=== PATIENT | male | born 1995 | race American Indian/Alaskan Native ===

== ENCOUNTER 2017-12-07 07:06 | Emergency (ER) | payer SELFPAY ==
[2017-12-07] MEDS ORDERED: ZOFRAN ODT ONE (07:31)
[2017-12-07] MEDS ORDERED: ZOFRAN ODT PO ONE (07:34)
[2017-12-07] MEDS ORDERED: NACL 0.9% 1000 ML 1,000 ML IV ONE ×2 (07:38→09:34)
[2017-12-07 08:13] LABS: Basophils % (Auto) 0.5 % (0.0-1.8); Eosinophils # (Auto) 0.1 K/mm3 (0.0-0.4); Eosinophils % (Auto) 0.6 % (0.0-4.3); Hematocrit 43.1 % (35.5-45.6); Hemoglobin 13.8 gm/dl (11.8-15.2); Lymphocytes # (Auto) 1.4 K/mm3 (1.2-5.4); Lymphocytes % (Auto) 16.1 % (13.4-35.0); Mean Corpuscular HGB Conc 32 % (32-34); Mean Corpuscular Volume 75 fl (84-94); Monocytes # (Auto) 0.6 K/mm3 (0.0-0.8); Monocytes % (Auto) 7.4 % (0.0-7.3); Platelet Count 294 K/mm3 (140-440); Red Blood Count 5.78 M/mm3 (3.65-5.03); Red Cell Distribution Width 15.6 % (13.2-15.2)
[2017-12-07 08:18] LABS: Mean Corpuscular Hemoglobin 24 pg (28-32)
[2017-12-07 08:27] LABS: Bilirubin,Urine NEG (Negative); Blood,Urine NEG (Negative); Color,Urine Yellow (Yellow); Mucus,Urine 3+ /HPF
[2017-12-07 08:28] LABS: Alanine Aminotransferase 19 units/L (7-56); BUN/Creatinine Ratio 9; Blood Urea Nitrogen 8 mg/dL (9-20); Calcium 9.3 mg/dL (8.4-10.2); Hemolysis Index 35
[2017-12-07] MEDS ORDERED: PEPCID IV ONE (09:34)
[2017-12-07] MEDS ORDERED: TORADOL IV ONE (09:34)
[2017-12-07] MEDS ORDERED: ZOFRAN IV ONE (09:34)
--- NOTE | 2017-12-07 09:36 | Emergency Department Report ---
Blank Doc - Documentation Documentation: Patient is a 22-year-old male with no significant past history presented with one day of nausea vomiting and central abdominal pain. Patient states crampy in nature 8 out of 10 in severity. The patient states there is no diarrhea or fever present. Brief physical exam patient does appear very uncomfortable is very nauseous actively vomiting. Emergency department. Patient has some just diffuse abdominal discomfort no rebound or guarding at this time. Patient be moved to a treatment room for IV fluids and nausea control as well as a CT of his abdomen and pelvis to rule out surgical cause of the patient's pain.
--- NOTE | 2017-12-07 10:46 | Cat Scan Report ---
CT ABDOMEN PELVIS WITH CONTRAST: HISTORY: Nausea and vomiting, abdominal pain. COMPARISON: none. TECHNIQUE: Helical CT in 1.25mm intervals following IV contrast. Sagittal and coronal reconstructions. FINDINGS: Lung bases: Normal. Liver: Normal. Biliary system: Normal. Pancreas: Normal. Spleen: Normal. Kidneys/ureters/bladder: Normal. Adrenal glands: Normal. Aorta: Normal. Intestines: Normal. Appendix: Normal. Pelvic viscera: Normal. Ascites: None. Adenopathy: None. Musculoskeletal: Normal. IMPRESSION: Unremarkable CT scan of the abdomen and pelvis with contrast.
[2017-12-07] MEDS ORDERED: BENTYL IM ONE (11:05)
[2017-12-07] MEDS ORDERED: NORCO 5/325 PO ONE (11:05)
[2017-12-07] MEDS ORDERED: REGLAN IV ONE (11:07)
--- NOTE | 2017-12-07 11:33 | Emergency Department Report ---
ED Abdominal Pain HPI - General Chief Complaint: Abdominal Pain Stated Complaint: VOMITING Time Seen by Provider: 12/07/17 09:31 Source: patient Mode of arrival: Ambulatory Limitations: No Limitations - History of Present Illness Initial Comments: This is a 22-year-old male nontoxic, well nourished in appearance, no acute signs of distress presents to the ED with c/o of nausea and vomiting and abdominal pain1 day. Patient describes vomiting as food content and yellow gastric acid. Patient describes abdominal pain as cramping and aching with level of 3/10 in the epigastric region. Patient denies chest pain, short of breath, fever, chills, headache, stiff neck, numbness or tingling. Patient denies any diarrhea or constipation. Patient denies any vaginal bleeding or discharge. Patient denies any recent travels. Patient denies any allergies with PMH of asthma. MD Complaint: abdominal pain -: days(s) (1) Location: epigastric Radiation: none Migration to: no migration Severity: mild Severity scale (0 -10): 3 Quality: cramping, aching Consistency: constant Improves With: nothing Worsens With: nothing Associated Symptoms: nausea, vomiting. denies: diarrhea, fever, chills, constipation, dysuria, hematemesis, hematochezia, melena, hematuria, anorexia, syncope - Related Data Allergies Allergy/AdvReac Type Severity Reaction Status Date / Time No Known Allergies Allergy Unverified 12/07/17 07:32 ED Review of Systems ROS: Stated complaint: VOMITING Other details as noted in HPI Constitutional: denies: chills, fever Eyes: denies: eye pain, eye discharge, vision change ENT: denies: ear pain, throat pain Respiratory: denies: cough, shortness of breath, wheezing Cardiovascular: denies: chest pain, palpitations Endocrine: no symptoms reported Gastrointestinal: abdominal pain, nausea, vomiting. denies: diarrhea, constipation, hematemesis Genitourinary: denies: urgency, dysuria Musculoskeletal: denies: back pain, joint swelling, arthralgia Skin: denies: rash, lesions Neurological: denies: headache, weakness, paresthesias Psychiatric: denies: anxiety, depression Hematological/Lymphatic: denies: easy bleeding, easy bruising ED Past Medical Hx - Past Medical History Previous Medical History?: Yes Hx Asthma: Yes - Surgical History Past Surgical History?: No - Social History Smoking Status: Never Smoker Substance Use Type: None ED Physical Exam - General Limitations: No Limitations General appearance: alert, in no apparent distress - Head Head exam: Present: atraumatic, normocephalic - Eye Eye exam: Present: normal appearance Pupils: Present: normal accommodation - ENT ENT exam: Present: normal exam, mucous membranes moist - Neck Neck exam: Present: normal inspection, full ROM. Absent: tenderness, meningismus, lymphadenopathy - Respiratory Respiratory exam: Present: normal lung sounds bilaterally. Absent: respiratory distress, wheezes, rales, rhonchi, stridor, chest wall tenderness, accessory muscle use, decreased breath sounds, prolonged expiratory - Cardiovascular Cardiovascular Exam: Present: regular rate, normal rhythm, normal heart sounds. Absent: irregular rhythm, systolic murmur, diastolic murmur, rubs, gallop - GI/Abdominal GI/Abdominal exam: Present: soft, tenderness (epigastric ), normal bowel sounds. Absent: distended, guarding, rebound, rigid, diminished bowel sounds, hyperactive bowel sounds, hypoactive bowel sounds, mass, pulsatile mass, hernia - Expanded GI/Abdominal Exam Expanded GI/Abdominal exam: Absent: psoas sign, obturator sign, heel tap sign, Forbes's sign, Rovsing's sign, tenderness at Mcburney's Point, ascites - Rectal Rectal exam: Present: deferred - Extremities Exam Extremities exam: Present: normal inspection, full ROM, normal capillary refill. Absent: tenderness - Back Exam Back exam: Present: normal inspection, full ROM - Neurological Exam Neurological exam: Present: alert, oriented X3, normal gait - Psychiatric Psychiatric exam: Present: normal affect, normal mood - Skin Skin exam: Present: warm, dry, intact, normal color. Absent: rash ED Course Vital Signs 12/07/1718 07:30 09:31 Temperature 97.4 F L Pulse Rate 46 L Respiratory 16 19 Rate Blood Pressure 128/92 O2 Sat by Pulse 100 Oximetry - Reevaluation(s) Reevaluation #1: 12/07/17 11:29 Patient is speaking in full sentences with no signs of distress noted. - Consultations Consultation #1: 12/07/17 11:29 Patient has been consulted with Frank Roldan about patient history, physical exam, and labs and examined and screened patient and agrees to ED plan of care and with admission. ED Medical Decision Making - Lab Data Result diagrams: 12/07/17 07:58 12/07/17 07:58 - Medical Decision Making This is a 22-year-old female that presents with abdominal pain and intractable nausea vomiting. Patient is stable and was examined by me and Frank Roldan. Negative signs of symptoms of appendicitis. Labs obtained. UA obtained. CT with contrast of abdomen obtained and dictated by the radiologist. Patient is notified of the report with no questions noted by the patient. Vital signs are stable prior to discharge. Patient received 10 of Reglan with 8 of Zofran IV with no relief. Patient has continues nausea with vomiting. Patient will be admitted for intractable nausea with vomiting. Patient was admitted with Dr. Mendez, (hospitalist). At time of admission, the patient does not seem toxic or ill in appearance. No acute signs of distress noted. Patient agrees to admission treatment plan of care. No further questions noted by the patient. Critical care attestation.: If time is entered above; I have spent that time in minutes in the direct care of this critically ill patient, excluding procedure time. ED Disposition Clinical Impression: Intractable nausea and vomiting Qualifiers: Vomiting type: unspecified Qualified Code(s): R11.2 - Nausea with vomiting, unspecified Abdominal pain Qualifiers: Abdominal location: epigastric Qualified Code(s): R10.13 - Epigastric pain Disposition: OP ADMIT IP TO THIS HOSP Is pt being admited?: Yes Condition: Stable Referrals: PRIMARY CARE, [Primary Care Provider] - 3-5 Days
--- NOTE | 2017-12-07 12:54 | History and Physical Report ---
History of Present Illness Chief complaint: My stomach hurts History of present illness: 22 YO Male with no PMH presents to ED for evaluation of Abdominal Pain. Pt seen and evaluated in ED and found to have UTI as well as nausea and vomiting. Pt treated with anti emetic therapy with improvement in symptoms. Pt medically optimized and back to usual state of health. Pt discharged home and instructed to f/u pcp 1wk for further care. Past History Past Medical History: No medical history, other (reviewed) Past Surgical History: No surgical history, Other (reviewed) Social history: single, lives with family Family history: no significant family history (reviewed) Medications and Allergies Allergies Allergy/AdvReac Type Severity Reaction Status Date / Time No Known Allergies Allergy Unverified 12/07/17 07:32 Home Medications Medication Instructions Recorded Confirmed Last Taken Type Ciprofloxacin HCl [Ciprofloxacin 500 mg PO Q12H #14 tab 12/07/17 Unknown Rx TAB] Ondansetron [Zofran Odt] 4 mg PO Q8HR #10 tab.rapdis 12/07/17 Unknown Rx Review of Systems Constitutional: no weight loss, no weight gain, no fever, no chills Ears, nose, mouth and throat: no ear pain, no ear discharge, no tinnitis, no decreased hearing, no nose pain Cardiovascular: no chest pain, no orthopnea, no palpitations Respiratory: no cough, no cough with sputum, no excessive sputum Gastrointestinal: abdominal pain, no change in bowel habits, no BRBPR, no melena , no hematochezia, no loss of appetite, no early satiety Genitourinary Male: no hematuria, no flank pain, no discharge, no urinary frequency, no urinary hesitancy Rectal: no pain, no incontinence, no bleeding Musculoskeletal: no neck stiffness, no neck pain, no shooting arm pain, no arm numbness/tingling, no low back pain, no shooting leg pain Integumentary: no rash, no pruritis, no redness, no sores, no wounds Neurological: no transient paralysis, no paralysis, no weakness, no parathesias , no numbness, no tingling Psychiatric: no anxiety, no memory loss, no change in sleep habits, no insomnia , no hypersomnia, no change in appetite, no change in libido Endocrine: no cold intolerance, no heat intolerance, no polyphagia, no excessive thirst, no polydipsia Hematologic/Lymphatic: no easy bruising, no easy bleeding, no lymphadenopathy, no lymphedema Allergic/Immunologic: no urticaria, no allergic rhinitis, no wheezing, no persistent infections, no anaphylaxis, no angioedema, no gluten intolerance, no seasonal allergies Exam - Constitutional Vitals: Temp Pulse Resp BP Pulse Ox 98.5 F 45 L 18 148/90 100 12/07/17 12:33 12/07/17 12:33 12/07/17 12:33 12/07/17 12:33 12/07/17 12:33 General appearance: Present: no acute distress, well-nourished - EENT Eyes: Present: PERRL ENT: hearing intact, clear oral mucosa - Neck Neck: Present: supple, normal ROM - Respiratory Respiratory effort: normal Respiratory: bilateral: CTA - Cardiovascular Heart Sounds: Present: S1 & S2. Absent: rub, click - Extremities Extremities: pulses symmetrical, No edema Peripheral Pulses: within normal limits - Abdominal General gastrointestinal: Present: soft, non-tender, non-distended, normal bowel sounds Male genitourinary: Present: normal - Integumentary Integumentary: Present: clear, warm, dry - Musculoskeletal Musculoskeletal: gait normal, strength equal bilaterally - Psychiatric Psychiatric: appropriate mood/affect, intact judgment & insight - Neurologic Neurologic: CNII-XII intact, moves all extremities Results - Labs CBC & Chem 7: 12/07/17 07:58 12/07/17 07:58 Labs: Abnormal lab results 12/07/17 12/07/17 12/07/17 Range/Units 07:58 07:58 08:00 RBC 5.78 H (3.65-5.03) M/mm3 MCV 75 L (84-94) fl MCH 24 L (28-32) pg RDW 15.6 H (13.2-15.2) % Cocke % (Auto) 7.4 H (0.0-7.3) % Seg Neutrophils % 75.4 H (40.0-70.0) % Carbon Dioxide 21 L (22-30) mmol/L BUN 8 L (9-20) mg/dL Glucose 161 H (75-100) mg/dL Urine pH 8.0 H (5.0-7.0) Urine WBC (Auto) 22.0 H (0.0-6.0) /HPF Assessment and Plan - Patient Problems (1) UTI (urinary tract infection) Status: Acute Qualifiers: Encounter type: initial encounter Plan to address problem: IV antibiotic therapy, f/U pcp 1wk, (2) Abdominal pain Status: Acute Qualifiers: Abdominal location: epigastric Qualified Code(s): R10.13 - Epigastric pain Plan to address problem: CT Abdomen/Pelvis unremarkable, anti emetic therapy.
[2017-12-07 13:55] LABS: Amphetamine Screen,Urine PRESUMPTIVE NEGATIVE; Benzodiazepines Screen,Urine PRESUMPTIVE NEGATIVE; Cocaine Screen,Urine PRESUMPTIVE NEGATIVE; Methadone Screen,Urine PRESUMPTIVE NEGATIVE; Opiate Screen,Urine PRESUMPTIVE NEGATIVE
[2017-12-07 14:08] LABS: Cannabinoid Screen,Urine PRESUMPTIVE POSITIVE
[2017-12-07] MEDS ORDERED: ROCEPHIN/NS 1 GM/50 ML 1 GM/50 ML BAG IV ONE (14:30)
[2017-12-07 18:08] VITALS: BP 112/51
--- NOTE | 2017-12-07 18:23 | Cat Scan Report ---
FINAL REPORT EXAM: CT HEAD/BRAIN WO CON HISTORY: headache/confusion TECHNIQUE: CT was performed from the foramen magnum through the vertex in the axial plane without the use of intravenous contrast. PRIORS: 12/13/2015 FINDINGS: The goncalves/white matter attenuation pattern is normal. There is no mass lesion or mass effect. There are no abnormal extra-axial fluid collections. There is no evidence of acute intracranial hemorrhage or infarct. The ventricles are of normal size and configuration. The skull and orbits are unremarkable. The visualized paranasal sinuses are clear. IMPRESSION: Normal CT of the head.
[2017-12-07] MEDS ORDERED: ROCEPHIN/NS 1 GM/50 ML 1 GM/50 ML BAG IV SCH (22:00)
== END 2017-12-07 19:17 | disposition admitted as inpatient to this hospital (09) ==
LOC: ED 07:06
DX: R10.13 Epigastric pain (principal); R11.2 Nausea with vomiting, unspecified; J45.909 Unspecified asthma, uncomplicated; R51 Headache
CPT/HCPCS: 36415; 70450; 74177; 80053; 80307; 81001; 85025; 87806; 96361; 96365; 96372; 96375; 99284; J0500; J0696; J1885; J2405; J2765; J7030; Q9967; Q0162

== ENCOUNTER 2019-08-05 08:59 | Emergency (ER) | payer OTHER ==
[2019-08-05] MEDS ORDERED: ONDANSETRON 4 MG/2 ML INJ ONE (09:13)
[2019-08-05] MEDS ORDERED: SODIUM CHLORIDE 0.9% 1000 ML 1,000 ML IV ONE ×2 (09:24→10:36)
[2019-08-05] MEDS ORDERED: MORPHINE 4 MG/1 ML INJ IV ONE (09:24)
[2019-08-05] MEDS ORDERED: METOCLOPRAMIDE 10 MG/2 ML INJ IV ONE (09:36)
--- NOTE | 2019-08-05 10:03 | Emergency Department Report ---
ED General Adult HPI - General Chief complaint: Abdominal Pain Stated complaint: VOMIT/ABD PAIN Time Seen by Provider: 08/05/19 09:17 Source: patient Mode of arrival: Ambulatory Limitations: No Limitations - History of Present Illness Initial comments: Patient is a 23-year-old male presents emergency room with complaints of nausea and vomiting that began yesterday. States he has had greater than 10 episodes of vomiting. He states that he also has generalized abdominal discomfort described as a "twisting sensation. He denies any diarrhea, fever, urinary symptoms, hematemesis. He states that he gets this every 4 to 5 months since childhood. He states he has never seen a GI doctor. He has a past medical history of asthma. He denies any allergies to medications he states he is a nondrinker. He states that he does smoke tobacco. Severity scale (0 -10): 10 - Related Data Previous Rx's Medication Instructions Recorded Last Taken Type Ciprofloxacin HCl [Ciprofloxacin 500 mg PO Q12H #14 tab 12/07/17 Unknown Rx TAB] Ondansetron [Zofran Odt] 4 mg PO Q8HR #10 tab.rapdis 12/07/17 Unknown Rx Ondansetron [Zofran Odt] 4 mg PO Q8HR PRN #14 tab.rapdis 08/05/19 Unknown Rx Promethazine HCl [Phenergan SUPPOS] 25 mg RC Q8HR PRN #12 supp.rect 08/05/19 Unknown Rx Allergies Allergy/AdvReac Type Severity Reaction Status Date / Time No Known Allergies Allergy Unverified 12/07/17 07:32 ED Review of Systems ROS: Stated complaint: VOMIT/ABD PAIN Other details as noted in HPI Comment: All other systems reviewed and negative ED Past Medical Hx - Past Medical History Previous Medical History?: Yes Hx Asthma: Yes - Surgical History Past Surgical History?: No - Social History Smoking Status: Current Every Day Smoker Substance Use Type: None - Medications Home Medications: Home Medications Medication Instructions Recorded Confirmed Last Taken Type Ciprofloxacin HCl [Ciprofloxacin 500 mg PO Q12H #14 tab 12/07/17 Unknown Rx TAB] Ondansetron [Zofran Odt] 4 mg PO Q8HR #10 tab.rapdis 12/07/17 Unknown Rx Ondansetron [Zofran Odt] 4 mg PO Q8HR PRN #14 tab.rapdis 08/05/19 Unknown Rx Promethazine HCl [Phenergan SUPPOS] 25 mg RC Q8HR PRN #12 supp.rect 08/05/19 Unknown Rx ED Physical Exam - General Limitations: No Limitations General appearance: alert, in no apparent distress - Head Head exam: Present: atraumatic, normocephalic - Eye Eye exam: Present: normal appearance - ENT ENT exam: Present: mucous membranes moist - Respiratory Respiratory exam: Present: normal lung sounds bilaterally. Absent: respiratory distress, wheezes, rales, rhonchi, stridor, chest wall tenderness, accessory muscle use, decreased breath sounds, prolonged expiratory - Cardiovascular Cardiovascular Exam: Present: regular rate, normal rhythm, normal heart sounds. Absent: systolic murmur, diastolic murmur, rubs, gallop - GI/Abdominal GI/Abdominal exam: Present: soft, tenderness (mild epigastric), normal bowel sounds, other (no peritoneal signs, no murphys or mcburneys point ttp, negative phillips turners and cullens sign). Absent: distended, guarding, rebound, rigid - Neurological Exam Neurological exam: Present: alert, oriented X3 - Psychiatric Psychiatric exam: Present: normal affect, normal mood - Skin Skin exam: Present: warm, dry, intact ED Course Vital Signs 08/05/19 08/05/19 09:03 12:03 Temperature 98.1 F Pulse Rate 82 92 H Respiratory 20 18 Rate Blood Pressure 149/77 Blood Pressure 144/83 [Left] O2 Sat by Pulse 99 100 Oximetry ED Medical Decision Making - Lab Data Result diagrams: 08/05/19 09:41 08/05/19 09:41 Lab Results 08/05/19 08/05/19 Range/Units 09:41 09:41 WBC 7.0 (4.5-11.0) K/mm3 RBC 5.50 H (3.65-5.03) M/mm3 Hgb 13.1 (11.8-15.2) gm/dl Hct 40.6 (35.5-45.6) % MCV 74 L (84-94) fl MCH 24 L (28-32) pg MCHC 32 (32-34) % RDW 14.8 (13.2-15.2) % Plt Count 252 (140-440) K/mm3 Lymph % (Auto) 12.8 L (13.4-35.0) % Mccone % (Auto) 6.7 (0.0-7.3) % Eos % (Auto) 0.4 (0.0-4.3) % Baso % (Auto) 0.2 (0.0-1.8) % Lymph # 0.9 L (1.2-5.4) K/mm3 Mccone # 0.5 (0.0-0.8) K/mm3 Eos # 0.0 (0.0-0.4) K/mm3 Baso # 0.0 (0.0-0.1) K/mm3 Seg Neutrophils % 79.9 H (40.0-70.0) % Seg Neutrophils # 5.6 (1.8-7.7) K/mm3 Sodium 137 (137-145) mmol/L Potassium 3.8 (3.6-5.0) mmol/L Chloride 101.1 (98-107) mmol/L Carbon Dioxide 21 L (22-30) mmol/L Anion Gap 19 mmol/L BUN 8 L (9-20) mg/dL Creatinine 1.0 (0.8-1.5) mg/dL Estimated GFR > 60 ml/min BUN/Creatinine Ratio 8 % Glucose 115 H (75-100) mg/dL Calcium 9.8 (8.4-10.2) mg/dL Total Bilirubin 0.40 (0.1-1.2) mg/dL AST 26 (5-40) units/L ALT 34 (7-56) units/L Alkaline Phosphatase 58 (35-129) units/L Total Creatine Kinase 827 H (55-170) units/L Total Protein 7.2 (6.3-8.2) g/dL Albumin 4.6 (3.9-5) g/dL Albumin/Globulin Ratio 1.8 % Lipase 21 (13-60) units/L - Medical Decision Making Patient is a 23-year-old male presents emergency room with complaints of nausea and vomiting that began yesterday. States he has had greater than 10 episodes of vomiting. He states that he also has generalized abdominal discomfort described as a "twisting sensation. He denies any diarrhea, fever, urinary symptoms, hematemesis. He states that he gets this every 4 to 5 months since childhood. He states he has never seen a GI doctor. He has a past medical history of asthma. He denies any allergies to medications he states he is a nondrinker. He states that he does smoke tobacco. Vitals are stable. on exam mild epigastric ttp, no guarding, no rebound, no rigidity, no peritoneal signs. Labs significant for CK of 827, otherwise labs are stable. Patient given 2 L of normal saline. Elevation in CK most likely due to vomiting, unlikely to be rhabdomyolysis at this time as it is not greater than 1000. Patient given Zofran, Reglan, morphine and symptoms resolved and patient was feeling much better. Patient was able to ambulate to the bathroom without any difficulty. Patient was able to tolerate p.o. intake while in the ED. patient given prescription for Zofran ODT and Phenergan suppositories. advised pt Please take medication as prescribed. Only use Phenergan suppositories if Zofran is not working. Increase your water intake. Eat a bland diet. Follow-up with a GI doctor. Follow-up with a primary care doctor. Return to the emergency room for any new or worsening symptoms including but not limited to worsening abdominal pain, high fever, unable to tolerate p.o. intake. - Differential Diagnosis Gastritis, gastroenteritis, colitis, pancreatitis, PUD, cyclical n/v Critical care attestation.: If time is entered above; I have spent that time in minutes in the direct care of this critically ill patient, excluding procedure time. ED Disposition Clinical Impression: Nausea & vomiting Qualifiers: Vomiting type: unspecified Vomiting Intractability: non-intractable Qualified Code(s): R11.2 - Nausea with vomiting, unspecified Abdominal pain Qualifiers: Abdominal location: epigastric Qualified Code(s): R10.13 - Epigastric pain Disposition: DC-01 TO HOME OR SELFCARE Is pt being admited?: No Does the pt Need Aspirin: No Condition: Stable Instructions: Acute Nausea and Vomiting (ED), Acute Abdominal Pain (ED) Additional Instructions: Please take medication as prescribed. Only use Phenergan suppositories if Zofran is not working. Increase your water intake. Eat a bland diet. Follow- up with a GI doctor. Follow-up with a primary care doctor. Return to the emergency room for any new or worsening symptoms including but not limited to worsening abdominal pain, high fever, unable to tolerate p.o. intake. Prescriptions: Promethazine HCl [Phenergan SUPPOS] 25 mg RC Q8HR PRN #12 supp.rect PRN Reason: Nausea And Vomiting Ondansetron [Zofran Odt] 4 mg PO Q8HR PRN #14 tab.rapdis PRN Reason: Nausea And Vomiting Referrals: HARMAN POSEY NP-C [Primary Care Provider] - 2-3 Days [facility] [Provider Group] - 2-3 Days CLARISSA BAUER MD [Staff Physician] - 2-3 Days [facility] [Provider Group] - 2-3 Days Time of Disposition: 11:41 Print Language: CZECH
[2019-08-05 10:05] LABS: Basophils % (Auto) 0.2 % (0.0-1.8); Eosinophils % (Auto) 0.4 % (0.0-4.3); Hematocrit 40.6 % (35.5-45.6); Hemoglobin 13.1 gm/dl (11.8-15.2); Lymphocytes # (Auto) 0.9 K/mm3 (1.2-5.4); Lymphocytes % (Auto) 12.8 % (13.4-35.0); Mean Corpuscular HGB Conc 32 % (32-34); Mean Corpuscular Volume 74 fl (84-94); Monocytes # (Auto) 0.5 K/mm3 (0.0-0.8); Monocytes % (Auto) 6.7 % (0.0-7.3); Platelet Count 252 K/mm3 (140-440); Red Cell Distribution Width 14.8 % (13.2-15.2)
[2019-08-05] MEDS ORDERED: ONDANSETRON 4 MG/2 ML INJ IV ONE (10:28)
[2019-08-05 10:36] LABS: Alanine Aminotransferase 34 units/L (7-56); Albumin 4.6 g/dL (3.9-5); BUN/Creatinine Ratio 8; Blood Urea Nitrogen 8 mg/dL (9-20); Calcium 9.8 mg/dL (8.4-10.2); Hemolysis Index 5
[2019-08-05 12:04] VITALS: BP 144/83
== END 2019-08-05 12:06 | disposition home or self-care (01) ==
LOC: ED 08:59
DX: R11.2 Nausea with vomiting, unspecified (principal); R10.84 Generalized abdominal pain; J45.909 Unspecified asthma, uncomplicated; F17.200 Nicotine dependence, unspecified, uncomplicated
CPT/HCPCS: 36415; 80053; 82550; 83690; 85025; 96361; 96374; 96375; 99283; J2270; J2405; J2765; J7030